=== PATIENT | female | born 1985 | race Caucasian/White ===

== ENCOUNTER 2016-08-08 10:57 | Emergency (ER) | payer SELFPAY ==
[~2016-08-08] VITALS: Wt 81.0 kg
[~2016-08-08 10:57] MED LIST: CIPR500T4 PO; no current meds
[2016-08-08 13:13] LABS: ADD UMIC YES; URINE BILIRUBIN (Dip) NEGATIVE (NEGATIVE); URINE BLOOD (Dip) NEGATIVE (NEGATIVE); URINE COLOR LT. YELLOW (YELLOW); URINE GLUCOSE (Dip) NEGATIVE (NEGATIVE); URINE KETONES (Dip) NEGATIVE (NEGATIVE); URINE LEUKOCYTE ESTERASE (Dip) NEGATIVE (NEGATIVE); URINE NITRITE (Dip) NEGATIVE (NEGATIVE); URINE TOTAL PROTEIN (Dip) TRACE (NEGATIVE); URINE UROBILINOGEN (Dip) 0.2 E.U./dL (0.1-1.0)
--- NOTE | 2016-08-08 13:26 | RADRPT ---
PROCEDURE: US Pelvis. CLINICAL INDICATION: Left-sided pelvic pain. TECHNIQUE: Multiple transabdominal and transvaginal sonographic images of the pelvis were obtained . COMPARISON: 06/01/2016. FINDINGS: The uterus is anteflexed in position and measures 9.2 x 4.4 x 5.1 cm (108 cc). The endometrial comp konstantin is homogeneous in echogenicity and measures 1.4 mm. The cervix is normal. There is no free pel jackie fluid. The right and left ovaries are symmetric in size with Doppler flow. Scattered few small follicles ar e present. The right ovary measures 3.0 x 2.4 x 2.2 cm (8.5 cc). The left ovary measures 3.3 x 2.8 x 2.5 cm (11.8 cc). IMPRESSION: Unremarkable pelvic ultrasound. RPTAT: HLST .Monica Guerrero MD, Date Time Electronically viewed and signed by .Monica Guerrero MD, on 08/08/2016 13:25 .T/
[2016-08-08 13:32] LABS: URINE RBCS NONE SEEN /HPF (0)
[2016-08-08] MEDS ORDERED: IBUP-1542 PO (14:30)
--- NOTE | 2016-08-08 14:37 | ERD ---
ER Documentation Chief Complaint Date/Time DATE: 08/08/16 TIME: 14:32 Chief Complaint lower left abd pain radiating to left leg for 3 days. no dysuria HPI 31-year-old female with a past medical history of left ovarian cyst presents to the ED complaining of left lower pelvic pain. Patient describes the pain as sharp and slightly radiates to the left side of her back. Denies taking any medications for her pain. Denies any nausea, vomiting, diarrhea, chest pain, shortness of breath. States that she did have a previous ovarian cystectomy in 2011 which did resolve her pain. Reports that her last menses was on July. States that she is a A1. Denies currently being . States that she has also had a previous cholecystectomy "a long time ago". Reports that she also smokes cigarettes and marijuana. Denies any alcohol use. Denies any vaginal discharge, vaginal bleeding. ROS All systems reviewed and are negative except as per history of present illness. Medications Home Meds Active Scripts Ibuprofen* (Motrin*) 600 Mg Tab, 600 MG PO Q6, #30 TAB Prov:JF JONES PA-C 08/08/16 Ciprofloxacin Hcl* (Ciprofloxacin Hcl*) 500 Mg Tablet, 500 MG PO BID for 7 Days , TAB Prov:FATMATA BLACKWOOD PA-C 06/01/16 Reported Medications [no current meds] No Conflict Check 02/14/10 Allergies Allergies: Coded Allergies: No Known Allergy (Verified , 02/14/10) PMhx/Soc History of Surgery: Yes (GALLBLADDER, BREAST AUGMENTATION) Anesthesia Reaction: No Hx Neurological Disorder: No Hx Respiratory Disorders: No Hx Cardiac Disorders: No Hx Psychiatric Problems: No Hx Miscellaneous Medical Probl: Yes (ANXIETY) Hx Alcohol Use: Yes (SOCIAL ) Hx Substance Use: Yes (MARIJUANA) Hx Tobacco Use: No Physical Exam Vitals Vital Signs Date Time Temp Pulse Resp B/P Pulse Ox O2 Delivery O2 Flow Rate FiO2 08/08/16 11:02 98.3 79 20 102/58 99 Physical Exam Const: Kym-[id number], well-nourished. In no acute distress. Head: Atraumatic, normocephalic Eyes: Normal Conjunctiva without injection. No purulent discharge. ENT: Normal external ear, nose. Moist oropharynx without tonsillar exudates. Non -erythematous pharynx. Uvula midline. No drooling. No trismus. Neck: No cervical midline tenderness. Full range of motion. No meningismus. No cervical lymphadenopathy. No JVD. Resp: Clear to auscultation bilaterally. No wheezing, rhonchi, rales, or crackles. No accessory muscle use. No retractions. Cardio: Regular rate and rhythm. No murmurs, rubs or gallops. Abd: Soft, slight lower left pelvic tenderness, non distended. Normal bowel sounds. No palpable masses. No rebound tenderness. No guarding. Negative McBurney's point. Negative psoas sign. Negative obturator sign. : Deferred because patient stated that she had a normal pap-smear in January 2016. Skin: No petechiae or rashes Back: No midline tenderness. No CVA tenderness. Ext: No cyanosis, or edema. Neur: Awake and alert. Normal gait. Normal coordination. Psych: Normal Mood and Affect Results 24 hrs Laboratory Tests Test 08/08/16 12:30 Urine Bilirubin NEGATIVE Urine Clarity CLEAR Urine Color LT. YELLOW Urine Glucose NEGATIVE% Urine Hemoglobin NEGATIVE Urine Ketones NEGATIVE Urine Leukocyte Esterase NEGATIVE Urine Microscopic RBC NONE SEEN/HPF Urine Microscopic WBC NONE SEEN/HPF Urine Nitrite NEGATIVE Urine Specific [place] 1.015 Urine Total Protein TRACE Urine Urobilinogen 0.2 E.U./dL Urine pH 7.0 Procedures/MDM 31-year-old female with left ovarian cysts with previous status post ovarian cystectomy presents to the ED complaining of left lower pelvic pain. Patient is afebrile nontoxic appearing. Patient has normal vital signs. At this time a pelvic ultrasound, urinalysis, urine was ordered to further evaluate patient. Patient denied wanting any pain medicines at this time. PROCEDURE: US Pelvis. CLINICAL INDICATION: Left-sided pelvic pain. TECHNIQUE: Multiple transabdominal and transvaginal sonographic images of the pelvis were obtained. COMPARISON: 06/01/2016. FINDINGS: The uterus is anteflexed in position and measures 9.2 x 4.4 x 5.1 cm (108 cc). The endometrial complex is homogeneous in echogenicity and measures 1.4 mm. The cervix is normal. There is no free pelvic fluid. The right and left ovaries are symmetric in size with Doppler flow. Scattered few small follicles are present. The right ovary measures 3.0 x 2.4 x 2.2 cm ( 8.5 cc). The left ovary measures 3.3 x 2.8 x 2.5 cm (11.8 cc). IMPRESSION: Unremarkable pelvic ultrasound. Low suspicion for symptomatic anemia, ectopic , sepsis, PID, appendicitis, ovarian torsion, tubo-ovarian abscess, surgical abdomen, or other emergent conditions. Patient was educated that there is a risk for threatened . Discharge medications: Ibuprofen Patient to follow up with SANITIZER in 2 days for further evaluation and treatment. Patient is to return sooner to the ED for any worsening symptoms. Patient's questions were answered. Patient understood and agreed with discharge plan. Departure Diagnosis: Primary Impression: Pelvic pain Condition: Stable Patient Instructions: What Are Ovarian Cysts?, Pelvic Pain, Unknown Cause Referrals: [facility] YOU HAVE RECEIVED A MEDICAL SCREENING EXAM AND THE RESULTS INDICATE THAT YOU DO NOT HAVE A CONDITION THAT REQUIRES URGENT TREATMENT IN THE EMERGENCY DEPARTMENT. FURTHER EVALUATION AND TREATMENT OF YOUR CONDITION CAN WAIT UNTIL YOU ARE SEEN IN YOUR DOCTORS OFFICE WITHIN THE NEXT 1-2 DAYS. IT IS YOUR RESPONSIBILITY TO MAKE AN APPOINTMENT FOR FOLOW-UP CARE. IF YOU HAVE A PRIMARY DOCTOR --you should call your primary doctor and schedule an appointment IF YOU DO NOT HAVE A PRIMARY DOCTOR YOU CAN CALL OUR PHYSICIAN REFERRAL HOTLINE AT IF YOU CAN NOT AFFORD TO SEE A PHYSICIAN YOU CAN CHOSE FROM THE FOLLOWING [facility] [address] [facility]. [facility] [address] [facility]. [facility] [address] [facility] [address] [place] [address] [facility]. [facility]. [address] [facility]. [facility] YOU HAVE RECEIVED A MEDICAL SCREENING EXAM AND THE RESULTS INDICATE THAT YOU DO NOT HAVE A CONDITION THAT REQUIRES URGENT TREATMENT IN THE EMERGENCY DEPARTMENT. FURTHER EVALUATION AND TREATMENT OF YOUR CONDITION CAN WAIT UNTIL YOU ARE SEEN IN YOUR DOCTORS OFFICE WITHIN THE NEXT 1-2 DAYS. IT IS YOUR RESPONSIBILITY TO MAKE AN APPOINTMENT FOR FOLOW-UP CARE. IF YOU HAVE A PRIMARY DOCTOR --you should call your primary doctor and schedule and appointment IF YOU DO NOT HAVE A PRIMARY DOCTOR YOU CAN CALL OUR PHYSICIAN REFERRAL HOTLINE AT . IF YOU CAN NOT AFFORD TO SEE A PHYSICIAN YOU CAN CHOSE FROM THE FOLLOWING [facility] INSTITUTIONS: [facility] [address] [place] [address] [facility] [address] [place] [address] [facility] [address] [place] [address] [facility] [address] [facility] [address] [place] [address] OFFICE FAX , [facility] [address] [place] [address] [address] [facility] [address] [place] [address] [address] [facility] [address] [facility], [address] [address] [address] [address] [place] [address] [facility] [address] [place] [address] [phone] [facility] [address] - [address], [facility] [address] [place] [address] [facility]. [address], [facility] [address] [address] [address] [place], [place] [id number] [facility] Hours: 8:00 am - 5:00 pm Additional Instructions: FOLLOW UP WITH YOUR SANITIZER TOMORROW.Return to this facility if you are not improving as expected. JF JONES PA-C Aug 08, 2016 14:37
== END 2016-08-08 14:36 | disposition home or self-care (01) ==
LOC: FTE 10:57
DX: R10.2 Pelvic and perineal pain (principal); F17.210 Nicotine dependence, cigarettes, uncomplicated
CPT/HCPCS: 76830; 76856; 81001; 81003